=== PATIENT | male | born 1965 | race Caucasian/White ===

== ENCOUNTER 2016-12-04 15:57 | Emergency (ER) | payer OTHER, SELFPAY ==
[2016-12-04 16:07] VITALS: BP 158/106
--- NOTE | 2016-12-04 16:40 | EDM.PDOC ---
ED HISTORY OF PRESENT ILLNESS - General Chief Complaint: Cardiovascular Problem Stated Complaint: RACING HEART BEAT Time Seen by Provider: 12/04/16 16:16 Source of Information: Reports: Patient, RN notes reviewed - History of Present Illness INITIAL COMMENTS - FREE TEXT/NARRATIVE: 51-year-old male comes in with intermittent palpitations. He does have history of bipolar disease. States he had been on Lamictal 200 mg daily and that has recently been increased up to 400 or 450 daily. He states celexa was also added about 3 weeks ago. Over the last few weeks he has been having palpitations at night. He states he will awaken, sometimes after having a "frightening dream" and then his heart will be racing. Usually with slow deep breathing he can get the heart rate to come down and just a few seconds. He states last night on one occasion it took a "few minutes". He has not had any difficulty with palpitations during the day. He does have history of hypertension and is on medication for that. He states he has had hypokalemia in the past. The diuretic he was on was stopped but he still does continue to take "OTC potassium supplement". No recent vomiting or diarrhea. No chest or abdominal pain. - Related Data Allergies/ADRs: Allergies Allergy/AdvReac Type Severity Reaction Status Date / Time No Known Allergies Allergy Verified 12/04/16 16:03 Past Medical History HEENT History: Reports: Impaired vision, Other (see below) Other HEENT History: Cyst removed from vocal cords, wears reading glasses Cardiovascular History: Reports: High cholesterol, Hypertension Respiratory History: Reports: Asthma Gastrointestinal History: Reports: Other (see below) Other Gastrointestinal History: ischemic colitis Neurological History: Reports: Concussion, Headaches, chronic Psychiatric History: Reports: Anxiety, Bipolar - Past Surgical History GI Surgical History: Reports: Colonoscopy Social & Family History - Tobacco Use Smoking Status *Q: Current Every Day Smoker Years of Tobacco use: 10 Packs/Tins Daily: 0.3 - Recreational Drug Use Recreational Drug Use: No ED ROS GENERAL - Review of Systems Review Of Systems: See Below Constitutional: Denies: fever, chills, diaphoresis HEENT: Reports: No symptoms Respiratory: Denies: shortness of breath, wheezing, pleuritic chest pain Cardiovascular: Reports: Palpitations (intermittent). Denies: Chest pain GI/Abdominal: Denies: Abdominal pain, Diarrhea, Nausea, Vomiting Musculoskeletal: Denies: shoulder pain, arm pain, back pain Skin: Reports: no symptoms Neurological: Denies: dizziness Psychiatric: Reports: No symptoms ED EXAM, GENERAL - Physical Exam Exam: See Below General Appearance: alert, no apparent distress Eye Exam: bilateral eye: PERRL Throat/Mouth: Normal inspection, Normal oropharynx Head: atraumatic. No: facial swelling Neck: supple, full range of motion Respiratory/Chest: no respiratory distress, lungs clear, normal breath sounds Cardiovascular: regular rate, rhythm Extremities: normal inspection, normal range of motion. No: pedal edema, leg pain Neurological: alert, oriented, no motor/sensory deficits Skin Exam: Warm, Dry, Normal color EKG INTERPRETATION EKG Date: 12/04/16 Rhythm: NSR Ada: normal P-wave: present QRS: normal ST-T: depressed (lead III) Course - Vital Signs Last Recorded V/S: Last Vital Signs Temp 97.2 F 12/04/16 16:04 Pulse 63 12/04/16 16:04 Resp 12 12/04/16 16:04 BP 158/106 H 12/04/16 16:04 Pulse Ox 98 12/04/16 16:04 - Orders/Labs/Meds Orders: Active Orders 24 hr Category Date Time Status EKG 12 Lead [EKG Documentation Completion] [RC] STAT Care 12/04/16 16:22 Active Labs: Laboratory Tests 12/04/16 12/04/16 Range/Units 16:46 16:46 WBC 7.41 (4.23-9.07) K/mm3 RBC 4.98 (4.63-6.08) M/mm3 Hgb 15.3 (13.7-17.5) gm/L Hct 43.7 (40.1-51.0) % MCV 87.8 (79.0-92.2) fl MCH 30.7 (25.7-32.2) pg MCHC 35.0 (32.2-35.5) g/dl RDW Std Deviation 41.9 (35.1-43.9) fL Plt Count 215 (163-337) K/mm3 MPV 9.0 L (9.4-12.3) fl Neut % (Auto) 61.1 (34.0-67.9) % Lymph % (Auto) 23.1 (21.8-53.1) % [place] % (Auto) 11.7 (5.3-12.2) % Eos % (Auto) 3.5 (0.8-7.0) Baso % (Auto) 0.5 (0.1-1.2) % Neut # 4.52 (1.78-5.38) K/mm3 Lymph # 1.71 (1.32-3.57) K/mm3 [place] # 0.87 H (0.30-0.82) K/mm3 Eos # 0.26 (0.04-0.54) K/mm3 Baso # 0.04 (0.01-0.08) K/mm3 Sodium 143 (136-145) mEq/L Potassium 3.4 L (3.5-5.1) mEq/L Chloride 105 (98-107) mEq/L Carbon Dioxide 32 (21-32) mEq/L Anion Gap 9.4 (5-15) BUN 15 (7-18) mg/dL Creatinine 1.1 (0.7-1.3) mg/dL Est Cr Clr Drug Dosing 80.19 mL/min Estimated GFR (MDRD) > 60 (>60) mL/min BUN/Creatinine Ratio 13.6 L (14-18) Glucose 90 (74-106) mg/dL Calcium 8.8 (8.5-10.1) mg/dL Total Bilirubin 0.4 (0.2-1.0) mg/dL AST 26 (15-37) U/L ALT 60 (16-63) U/L Alkaline Phosphatase 59 (46-116) U/L Total Protein 6.9 (6.4-8.2) g/dl Albumin 4.0 (3.4-5.0) g/dl Globulin 2.9 gm/dL Albumin/Globulin Ratio 1.4 (1-2) Departure - Departure Time of Disposition: 18:24 Disposition: Home, Self-Care 01 Clinical Impression: Palpitations Instructions: Palpitations, [id number] Referrals: Myrna Mullen MD [Primary Care Provider] - Forms: ED Department Discharge Additional Instructions: continue current medications as prescribed for now, I suggest picking up a not an automatic blood pressure cuff, check your blood pressure and heart rate whenever you do have episodes of palpitations at home. Keep a log of these readings. If you are getting readings of a heart rate more than 120 that stay above 120 for more than 3-5 minutes then consider returning to ED especially if this lasts for more than 10 or 15 minutes and if you are weak lightheaded or dizzy. If you're getting frequent readings greater than 120 during the night then call your prescribing provider to discuss medication reduction. Return to ED as needed. - My Orders Last 24 Hours: My Active Orders 12/04/16 16:22 EKG 12 Lead [EKG Documentation Completion] [RC] STAT - Assessment/Plan Last 24 Hours: My Active Orders 12/04/16 16:22 EKG 12 Lead [EKG Documentation Completion] [RC] STAT
== END 2016-12-04 18:35 | disposition home or self-care (01) ==
LOC: SUPCPDRO 15:57 → JD.ED 15:57
DX: R00.2 Palpitations (principal); J45.909 Unspecified asthma, uncomplicated; E78.00 Pure hypercholesterolemia, unspecified; I10 Essential (primary) hypertension; F41.9 Anxiety disorder, unspecified; F17.210 Nicotine dependence, cigarettes, uncomplicated
CPT/HCPCS: 36415; 80053; 85025; 93005; 99283; 99285